=== PATIENT | male | born 1950 | race Caucasian/White ===

== ENCOUNTER 2021-07-02 16:09 | Observation (INO) | payer MEDICARE, BC ==
[2021-07-02 17:02] LABS: #Basophils 0.1 10x3/uL (0.0-0.2); #Eosinphils 0.2 10x3/uL (0.0-0.5); #Neutrophils 8.4 10x3/uL (1.5-8.4); %Basophils 0.5 % (0.0-2.0); %Eosinophils 1.8 % (0.0-6.0); %Lymphocytes 13.5 % (18.0-47.0); %Monocytes 8.5 % (0.0-10.0); %Neutrophils 74.5 % (40.0-75.0); Hemoglobin 15.1 g/dL (13.5-17.5); Mean Corpuscular HGB CONC 33.5 g/dL (32.0-36.0); Mean Corpuscular Hemoglobin 28.5 pg (27.0-33.0); Mean Corpuscular Volume 85.3 fl (81.2-95.1); Mean Platelet Volume 9.6 fl (7.4-10.4); Platelet Count 256 10x3/uL (150-450); RBC Distribution Width 12.7 % (11.5-14.5); Red Blood Cell (RBC) Count 5.29 10x6/uL (4.32-5.72); White Blood Cell (WBC) Count 11.2 10x3/uL (3.5-10.5)
[2021-07-02 17:03] LABS: ALT (SGPT) 22 U/L (8-55); AST (SGOT) 29 U/L (5-34); Albumin 4.3 g/dL (3.4-4.8); Alkaline Phosphatase 89 U/L (40-110); Anion Gap 12 mmol/L (10-20); BUN (Urea Nitrogen) 17 mg/dL (8.4-25.7); Bilirubin, Total 0.6 mg/dL (0.2-1.2); Calc. Creatinine Clearance 0 mL/min (70-130); Calcium 8.9 mg/dL (7.8-10.44); Carbon Dioxide 24 mmol/L (23-31); Chloride 106 mmol/L (98-107); Globulin 2.8 g/dL (2.4-3.5); Glucose 84 mg/dL (83-110); Potassium 4.2 mmol/L (3.5-5.1); Protein, Total 7.1 g/dL (5.8-8.1); Sodium 138 mmol/L (136-145)
[2021-07-02] MEDS ORDERED: Melatonin 3 MG TAB PO PRN (19:53)
[2021-07-02] MEDS ORDERED: traZODone HCl 50 MG TAB PO PRN (19:54)
[2021-07-02 20:26] LABS: Magnesium 1.9 mg/dL (1.6-2.6)
[2021-07-02 20:31] LABS: Troponin I Less than 0.010 ng/mL (< 0.028)
[2021-07-02 22:34] VITALS: BMI 36.0
[2021-07-02] MEDS ORDERED: Aspirin Chewable 81 MG TAB PO SCH (23:00)
[2021-07-02] MEDS ORDERED: Atorvastatin Calcium 40 MG TAB PO SCH (23:00)
[2021-07-02] MEDS ORDERED: Metoprolol Tartrate 25 MG TAB PO SCH (23:00)
[2021-07-02] MEDS: Nitroglycerin 2% Ointment 1 INCH/1 GM Packet TOP SCH (23:17)
[2021-07-02 23:34] LABS: Troponin I Less than 0.010 ng/mL (< 0.028)
[2021-07-03 04:44] LABS: #Basophils 0.1 10x3/uL (0.0-0.2); #Eosinphils 0.2 10x3/uL (0.0-0.5); #Monocytes 0.9 10x3/uL (0.0-1.1); #Neutrophils 7.5 10x3/uL (1.5-8.4); %Basophils 0.6 % (0.0-2.0); %Eosinophils 2.2 % (0.0-6.0); %Lymphocytes 16.9 % (18.0-47.0); %Monocytes 8.3 % (0.0-10.0); %Neutrophils 71.1 % (40.0-75.0); Hemoglobin 15.4 g/dL (13.5-17.5); Mean Corpuscular Hemoglobin 28.9 pg (27.0-33.0); Mean Platelet Volume 9.5 fl (7.4-10.4); Platelet Count 242 10x3/uL (150-450); RBC Distribution Width 12.7 % (11.5-14.5); Red Blood Cell (RBC) Count 5.33 10x6/uL (4.32-5.72); White Blood Cell (WBC) Count 10.6 10x3/uL (3.5-10.5)
[2021-07-03 04:55] LABS: Anion Gap 12 mmol/L (10-20); BUN (Urea Nitrogen) 15 mg/dL (8.4-25.7); Calc. Creatinine Clearance 131 mL/min (70-130); Calcium 8.7 mg/dL (7.8-10.44); Carbon Dioxide 24 mmol/L (23-31); Cardiac Risk 4.9 (Less than 4.5); Chloride 107 mmol/L (98-107); Cholesterol 127 mg/dl (< 200 Desired); Glucose 114 mg/dL (83-110); HDL Cholesterol 26 mg/dL (>60 Neg Risk); LDL Cholesterol, Calculated 82 mg/dL; Potassium 3.8 mmol/L (3.5-5.1); Sodium 139 mmol/L (136-145); Triglycerides 94 mg/dL (Less than 150)
[2021-07-03] MEDS: Nitroglycerin 2% Ointment 1 INCH/1 GM Packet TOP SCH (06:33)
[2021-07-03] MEDS ORDERED: Glimepiride 2 MG TAB PO SCH (08:00)
[2021-07-03] MEDS ORDERED: metFORMIN 500 MG TAB PO SCH (08:00)
[2021-07-03] MEDS ORDERED: Losartan 25 MG TAB PO SCH (09:00)
[2021-07-03] MEDS ORDERED: Lisinopril 5 MG TAB PO SCH (09:00)
[2021-07-03] MEDS ORDERED: Olmesartan 5 MG TAB PO SCH (09:00)
[2021-07-03] MEDS ORDERED: Aspirin 81 mg Enteric Coated Tablet PO SCH (09:00)
[2021-07-03] MEDS ORDERED: Aspirin Chewable 81 MG TAB PO SCH (09:00)
[2021-07-03] MEDS ORDERED: Metoprolol Tartrate 25 MG TAB PO SCH (09:00)
[2021-07-03] MEDS ORDERED: Carvedilol 6.25 MG TAB PO SCH ×2 (09:00→17:00)
[2021-07-03] MEDS ORDERED: Enoxaparin Sodium 40 MG/0.4 ML SYRINGE SC SCH (09:00)
[2021-07-03 12:10] VITALS: BP 164/90; TEMP 96.9
[2021-07-03] MEDS ORDERED: Atorvastatin Calcium 40 MG TAB PO SCH (21:00)
== END 2021-07-03 14:10 | disposition home or self-care (01) ==
LOC: CSHERS 16:09 → CSHTELE 21:52
PROVIDERS: ADMIT Family Medicine; ATTEND Physician Assistant
DX: I10 Essential (primary) hypertension (principal); E78.5 Hyperlipidemia, unspecified; E11.9 Type 2 diabetes mellitus without complications; G47.33 Obstructive sleep apnea (adult) (pediatric); G25.81 Restless legs syndrome; Z79.899 Other long term (current) drug therapy; Z79.84 Long term (current) use of oral hypoglycemic drugs; Z87.442 Personal history of urinary calculi
CPT/HCPCS: 36415; 36416; 71045; 80048; 80053; 80061; 83735; 83880; 84484; 85025; 93005; 93010; 93306; 96372; G0378; J1650